=== PATIENT | female | born 1980 | race Caucasian/White ===

== ENCOUNTER 2023-12-20 07:23 | Day surgery (SDC) | payer BC ==
[~2023-12-20] VITALS: Ht 172.7 cm; Wt 82.9 kg
[~2023-12-20 07:23] MED LIST: LR 1,000 ML IV SCH; Ondansetron 4 MG/2 ML VIAL IV PRN
[2023-12-20 07:35] VITALS: BP 106/70; PULSE 56; TEMP 97.5
--- NOTE | 2023-12-20 08:06 | NUR ---
The patient ambulated back to [place] [facility] independently using a steady gait and appeared to tolerate the activity well. Vital signs obtained. Consent signed. 20G IV started in right hand with one stick, LR Infusing without difficulty. Assessment completed. Home medications reconcilled. Warm blanket provided. will come pick her up at discharge. Denies any further needs at this time.
[2023-12-20] MEDS ORDERED: ADDERALL10 MG PO (08:18)
[2023-12-20] MEDS ORDERED: FLEXERIL 1010 MG/TAB PO (08:18)
[2023-12-20] MEDS ORDERED: ADDERALL XR30 MG PO (08:18)
[2023-12-20] MEDS ORDERED: Glycopyrrolate 0.2 MG/ML 1 ML VIAL ONE (09:05)
[2023-12-20 09:40] VITALS: BP 104/60; PULSE 61
--- NOTE | 2023-12-20 09:48 | NUR ---
0940 PATIENT RETURNS TO [facility] [place] [facility] VIA CART. PT AWAKE AND ALERT. RESPIRATIONS UNLABORED. AMBULATED TO RECLINER CHAIR WITH 2:1 SBA. PT DENIES NAUSEA OR ABDOMINAL PAIN. HOOKED UP TO MONITOR AND VS OBTAINED. CALL LIGHT AT SIDE AND PRESENT. 0945 PATIENT TOLERATING WATER AND MUFFIN WITHOUT NAUSEA OR DIFFICULTY SWALLOWING (EGD ONLY). 0950 DR. ROBERTSON IN ROOM SPEAKING WITH PATIENT. 1000 D/C INSTRUCTIONS REVIEWED WITH PATIENT. PT VERBALIZED UNDERSTANDING AND A COPY OF INSTRUCTIONS PROVIDED IN D/C FOLDER. 1015 PATIENT DRESSES SELF. 1030 PATIENT DISCHARGED FROM UNIT VIA W/C TO A PERSONAL VEHICLE. PT LEFT HOSPITAL IN STABLE CONDITION.
[2023-12-20 09:55] VITALS: BP 106/49; PULSE 59
[2023-12-20 10:10] VITALS: BP 106/61; PULSE 62
== END 2023-12-20 10:30 | disposition home or self-care (01) ==
LOC: SDCO 07:23
DX: K52.9 Noninfective gastroenteritis and colitis, unspecified (principal); K57.30 Diverticulosis of large intestine without perforation or abscess without bleeding; K64.0 First degree hemorrhoids; Z80.0 Family history of malignant neoplasm of digestive organs; K59.00 Constipation, unspecified
CPT/HCPCS: J2704; J7120